=== PATIENT | male | born 1990 | race American Indian/Alaskan Native ===

== ENCOUNTER 2016-08-01 07:44 | Emergency (ER) | payer OTHER, BC ==
[2016-08-01] MEDS ORDERED: MOTRIN PO ONE ×2 (14:15→14:17)
[2016-08-01 14:16] VITALS: BP 136/72
[2016-08-01] MEDS ORDERED: TYLENOL PO ONE (15:24)
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
== END 2016-08-01 16:50 | disposition home or self-care (01) ==
LOC: ED 07:44
DX: M25.562 Pain in left knee (principal); V49.49XA Driver injured in collision with other motor vehicles in traffic accident, initial encounter; Y93.9 Activity, unspecified; Y92.9 Unspecified place or not applicable; Y99.9 Unspecified external cause status
CPT/HCPCS: 99283